=== PATIENT | male | born 1985 | race Caucasian/White ===

== ENCOUNTER 2016-08-05 23:53 | Emergency (ER) | payer SELFPAY ==
[~2016-08-05 23:53] MED LIST: ALBUTEROL17 GM INH; DICLOFENAC; LORTAB 5/500 TA1 TA1 PO; MEDROL DOSEPAK4 MG DOB; ROBAXIN; TESSALON200 MG PO; ZITHROMAX PO
== END 2016-08-06 00:57 | disposition home or self-care (01) ==
LOC: SED 23:53
DX: L03.115 Cellulitis of right lower limb (principal); F17.200 Nicotine dependence, unspecified, uncomplicated
CPT/HCPCS: 99283

== ENCOUNTER 2016-08-08 19:35 | Emergency (ER) | payer SELFPAY ==
[2016-08-08] MEDS ORDERED: BACTRIM (19:45)
[2016-08-08] MEDS ORDERED: KEFLEX (19:45)
== END 2016-08-08 20:41 | disposition home or self-care (01) ==
LOC: SED 19:35
DX: L02.415 Cutaneous abscess of right lower limb (principal); L03.115 Cellulitis of right lower limb; F17.200 Nicotine dependence, unspecified, uncomplicated
CPT/HCPCS: 10060; 87070; 87077; 87186; 87205; 99283

== ENCOUNTER 2016-11-17 14:23 | Emergency (ER) | payer SELFPAY ==
[~2016-11-17] VITALS: Ht 185.4 cm; Wt 77.1 kg
[~2016-11-17 14:23] MED LIST changes: +BACTRIM; +KEFLEX
== END 2016-11-17 17:35 | disposition left against medical advice (07) ==
LOC: CED 14:23
DX: Z53.21 Procedure and treatment not carried out due to patient leaving prior to being seen by health care provider (principal)

== ENCOUNTER 2016-12-07 18:49 | Emergency (ER) | payer SELFPAY ==
[~2016-12-07] VITALS: Ht 185.4 cm; Wt 81.6 kg
--- NOTE | ~2016-12-07 | EKG ---
PATIENT: CHRISTIE KABA UNIT #: [id number] Ventricular Rate: 101 BPM Atrial Rate: 101 BPM P-R Interval: 130 ms QRS Duration: 94 ms Q-T Interval: 308 ms QTC Calculation(Bezet): 399 ms P Dexter: 5 degrees Calculated R Dexter: -8 degrees Calculated T Dexter: 61 degrees Diagnosis Line: Sinus tachycardia Diagnosis Line: Incomplete right bundle branch block Diagnosis Line: Borderline ECG Diagnosis Line: No previous ECGs available Diagnosis Line: Confirmed by PAT MACIEL MD ([id number]) on Diagnosis Line: 12/09/2016 11:19:10 AM INTERPRETING MD: JANELL OLIVA
--- NOTE | ~2016-12-07 | CR72 ---
[facility] A Service [facility] RADIOLOGY TEXT RESULTS PATIENT: CHRISTIE KABA LOCATION: SED : 81 UNIT #: [id number] AGE: [address]: Adrián Dunn MD SEX: M ORDER DR: [id number] [address] [address] [id number] E MR#: [id number] Acc #: [id number] NAME: CHRISTIE KABA : 1985 SEX: M STUDY DATE/TIME: 12/07/2016 20:15 UNIT: SED ROOM: STUDY DESCRIPTION: CR Chest Single View Portable Attending Physician: Adrián Dunn M.D. Ordering Physician: Adrián Dunn M.D. Primary Care Physician: Primary Care Physician No MEDICAL IMAGING REPORT This report is preliminary unless electronic signature is present. EXAM Single view of the chest dated 12/07/2016 COMPARISON Chest 2 views dated 12/11/2012. HISTORY Chest pain for 1 day. FINDINGS Single view of the chest was obtained. There is a 1.2 x 1.5 cm ill-defined opacity projected over the anterior segment of the right second rib at the costochondral junction, in the region of the right upper lobe. It is probably an alveolar infiltrate rather than summation of shadows in this region. Correlate with CT chest obtained at the same time. No pleural effusion, pneumothorax. Heart and bones do not demonstrate any significant abnormality. Dictated by... Ju Reese M.D. THIS IS AN ELECTRONICALLY VERIFIED REPORT Ju Reese M.D. at 12/08/2016 10:01 PM CPR/mjs TD: 12/08/2016 12:43 JOB #: [id number] [facility] A [facility] RADIOLOGY TEXT RESULTS PATIENT: CHRISTIE KABA LOCATION: SED : 81 UNIT #: [id number] AGE: [address]: Adrián Dunn MD SEX: M ORDER DR: MEDICAL IMAGING REPORT Page 1 of 1
--- NOTE | ~2016-12-07 | CT16 ---
[facility] A Service of [facility] RADIOLOGY TEXT RESULTS PATIENT: CHRISTIE KABA LOCATION: SED : 81 UNIT #: [id number] AGE: [address]: Adrián Dunn MD SEX: M ORDER DR: [id number] [address] [address] [id number] E MR#: [id number] Acc #: [id number] NAME: CHRISTIE KABA : 1985 SEX: M STUDY DATE/TIME: 12/07/2016 20:14 UNIT: SED ROOM: STUDY DESCRIPTION: CT Angio Chest for PE Attending Physician: Adrián Dunn M.D. Ordering Physician: Adrián Dunn M.D. Primary Care Physician: Primary Care Physician No MEDICAL IMAGING REPORT This report is preliminary unless electronic signature is present. EXAM CT angiogram chest, PE protocol dated 12/07/2016. COMPARISON Single-view chest dated 12/07/2016. HISTORY Right-sided chest pain, hurts to breathe for the last [address] angiogram of the chest was obtained with IV contrast in the axial plane followed by multiplanar reformats. This CT exam was performed with one or more of the following radiation dose reduction techniques: Automatic exposure control, adjustment of mA and/or kV according to patient size, and iterative reconstruction. No aortic aneurysm or dissection. Main, right/left pulmonary arteries and their proximal segmental branches do not demonstrate any significant abnormality. Evaluation of the distal branches are limited given the decreased enhancement, particularly in bilateral lower lobes. Punctate filling defect is suspected in series 4, image 90, but it is not well correlated in the other planes to confirm pulmonary embolism. Right hilar enlarged lymph node measures 1.9 x 2.1 cm. A smaller, slightly enlarged left hilar node measures 1.4 x 1.3 cm. Heart is of normal size. Mild dependent atelectatic changes are noted in bilateral posterior aspect of the lower lobes. A pleural-based 2.0 x 1.9 cm alveolar infiltrate is noted in the lateral aspect of the right upper lobe. No pleural effusion or pneumothorax. Bones are within normal limits. Imaged upper abdomen does not demonstrate any significant abnormality. IMPRESSION 1. There is a 1.9 x 2.0 cm right upper lobe infiltrate, pleural based STS. [facility] A Service of [facility] RADIOLOGY TEXT RESULTS PATIENT: CHRISTIE KABA [place] [facility] [place] [birth year] UNIT #: [id number] AGE: [address]: Adrián Dunn MD SEX: M ORDER DR: and noncalcified. Three-month followup is suggested to ensure resolution with treatment. 2. Dependent bibasilar atelectatic lung changes are noted. 3. Bilateral hilar lymphadenopathy, more prominent on the right measuring 1.9 x 2.1 cm. 4. No central pulmonary emboli are seen. Evaluation of the distal pulmonary branches are limited. Subtle punctate filling defect along one of the subsegmental right lower lobe pulmonary branch of the posterobasal segment cannot be excluded as described above. 5. No aortic aneurysm or dissection. Dictated by... Ju Reese M.D. THIS IS AN ELECTRONICALLY VERIFIED REPORT Ju Reese M.D. at 12/08/2016 10:02 PM CPR/psc TD: 12/08/2016 11:20 JOB #: [id number] MEDICAL IMAGING REPORT Page 1 of 1
[2016-12-07 19:30] LABS: BASOPHIL# 0.2 X10e3 (0-0.3); BASOPHIL% 1.3 % (0-2.5); EOSINOPHIL% 0.3 % (0.0-7.0); HEMATOCRIT 43.6 % (38.0-50.0); HEMOGLOBIN 15.2 gm/dL (13.0-16.0); LYMPHOCYTE# 1.7 X10e3 (1.0-3.5); LYMPHOCYTE% 13.9 % (17.0-45.0); MEAN CELL VOLUME 93.1 FL (83-96); MEAN CORPUSCULAR HEMOGLOBIN 32.4 PG (28-34); MEAN CORPUSCULAR HGB CONC 34.8 g/dL (30-36); MEAN PLATELET VOLUME 7.3 FL (6.5-11.5); MONOCYTE# 1.1 X10e3 (0-1.0); MONOCYTE% 9.6 % (3.0-12.0); NEUTROPHIL# 8.9 X10e3 (1.5-7.1); NEUTROPHIL% 74.9 % (40-75); PLATELET COUNT 308 X10e3 (140-420); RED BLOOD COUNT 4.68 X10e (3.90-5.60); RED CELL DISTRIBUTION WIDTH 12.6 % (11.0-15.5); WHITE BLOOD COUNT 11.9 X10e3 (4.0-10.5)
[2016-12-07 19:33] LABS: DIFF IND NO
[2016-12-07 19:42] LABS: POC - CKMB <1.0 ng/mL (0.0-7.9); POC - MYOGLOBIN 41.5 ng/mL (0.0-169.0); POC - TROPONIN <0.05 ng/mL (<=0.05)
[2016-12-07 19:46] LABS: ALBUMIN SERUM 3.9 g/dL (3.5-5.0); BILIRUBIN, DIRECT 0.1 mg/dL (0.0-0.2); BILIRUBIN,INDIRECT 0.6 mg/dL (0.0-0.9); BILIRUBIN,TOTAL 0.7 mg/dL (0.2-2.0); BUN/CREATININE RATIO 18.75; CALCIUM SERUM 8.7 mg/dL (8.4-10.2); CREATININE SERUM 0.8 mg/dL (0.6-1.4); GLOM FILT RATE Estimated 117.4 mL/min (>60); POTASSIUM 4.1 mmol/L (3.5-5.1); PROTEIN TOTAL SERUM 7.8 g/dL (6.0-8.3)
[2016-12-07 19:51] LABS: INR 1.2; PROTHROMBIN TIME (PATIENT) 13.3 SECONDS (9.5-12.4)
[2016-12-07 19:58] LABS: PARTIAL THROMBOPLASTIN TIME 30.3 SECONDS (25.6-38.1)
[2016-12-07 22:18] LABS: POC - CKMB <1.0 ng/mL (0.0-7.9); POC - MYOGLOBIN 34.6 ng/mL (0.0-169.0); POC - TROPONIN <0.05 ng/mL (<=0.05)
[2016-12-07] MEDS ORDERED: ALBUTEROL17 GM INH (22:58)
[2016-12-07] MEDS ORDERED: PREDNISONE PO (22:59)
[2016-12-07] MEDS ORDERED: DOXYCYCLINE HY100 M3 PO (23:00)
[2016-12-07] MEDS ORDERED: IBUPROFEN600 MG PO (23:00)
== END 2016-12-07 23:11 | disposition home or self-care (01) ==
LOC: SED 18:49
PROVIDERS: Emergency Medicine
DX: R07.81 Pleurodynia (principal); R06.02 Shortness of breath; F17.200 Nicotine dependence, unspecified, uncomplicated; Z79.899 Other long term (current) drug therapy
CPT/HCPCS: 36415; 71010; 71275; 80048; 80076; 82553; 83605; 83874; 84484; 85025; 85379; 85610; 85730; 87040; 93005; 94640; 96361; 96365; 96375; 96376; 99285; J2270; J2543; J3370; Q9967